=== PATIENT | female | born 2000 | race Hispanic/Latino ===

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

== ENCOUNTER 2020-04-13 07:58 | Day surgery (SDC) | payer BC, OTHER ==
[2020-04-13] MEDS ORDERED: hydrALAZINE 20 MG/ML VIAL SLOW IVP PRN (09:14)
--- NOTE | 2020-04-13 09:17 | PDOC.LDHP ---
Labor and Delivery H&P Chief complaint: contractions HPI: 20 y/o at 36w6d, patient of Dr. Sarabia, presents with ctx off and on since 3 this morning. Denies VB, LOF, UTI sx, or decreased movement. ROS neg for HEENT, CV, pulm, GI, , neuro, psych, skin, musculoskeletal, or constitutional symptoms other than mentioned above. 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 Current complications: none Past Medical History: HSV Current medications: pre- vitamins Previous surgical history: low tranverse CS (x1) Allergies/Adverse Reactions: Allergies Allergy/AdvReac Type Severity Reaction Status Date / Time No Known Allergies Allergy Verified 06/08/19 18:42 Social history: none - Physical Exam Vital signs reviewed and normal: yes General: NAD, resting Lungs: nonlabored breathing Abdomen: gravid Extremeties: no edema FHT: category 1 (120s, mod variability, + accels, no decels) [place] contractions every: irritability - Vaginal Exam cm dilated: 0 Effacement: 0% Station: -3 - OB Labs Blood type: O RH: positive - Assessment 20 y/o at 36w6d with no e/o active labor. status reassuring. Has appointment scheduled for today at 2pm. - Plan -: D/c home with precautions. Advised to keep all appointments.
[2020-04-14] MEDS ORDERED: FLU VACC QS2020-21(6MOS UP)/PF 60 MCG/0.5 ML SYRINGE IM ONE (09:00)
== END 2020-04-13 08:55 | disposition home or self-care (01) ==
LOC: L&D/OP 07:58
PROVIDERS: ATTEND Obstetrics & Gynecology
DX: O47.03 False labor before 37 completed weeks of gestation, third trimester (principal); O34.211 Maternal care for low transverse scar from previous cesarean delivery; Z3A.36 36 weeks gestation of pregnancy; Z86.19 Personal history of other infectious and parasitic diseases
CPT/HCPCS: 99282

== ENCOUNTER 2020-04-30 09:37 | Outpatient (CLI) | payer BC, OTHER ==
[2020-04-30 22:23] LABS: SARS-CoV-2 PCR by NAA Not Detected (NotDetected)
== END 2020-04-30 09:38 | disposition home or self-care (01) ==
LOC: LABBT 09:37
PROVIDERS: ATTEND Obstetrics & Gynecology
DX: Z01.812 Encounter for preprocedural laboratory examination (principal); Z20.822 Contact with and (suspected) exposure to COVID-19
CPT/HCPCS: 87635; U0003; U0005